=== PATIENT | female | born 1995 | race African-American/Black ===

== ENCOUNTER 2018-02-20 19:33 | Emergency (ER) | payer MEDICAID ==
[~2018-02-20] VITALS: Ht 180.3 cm; Wt 120.0 kg
[~2018-02-20 19:33] MED LIST: CALC1TAB17 PO; FERR-71 PO; PREN-127 PO
[2018-02-20 21:23] VITALS: BP 138/85
[2018-02-20 21:43] LABS: CLARITY URINE CLEAR (CLEAR); COLOR URINE YELLOW (YELLOW); KETONES URINE 1+ (NEGATIVE); LEUKOCYTE ESTERASE URINE NEGATIVE (NEGATIVE); NITRITE URINE NEGATIVE (NEGATIVE); OCCULT BLOOD URINE 2+ (NEGATIVE); PH URINE 5.5 (4.5-8.0); PROTEIN URINE NEGATIVE (NEGATIVE); SPECIFIC GRAVITY URINE 1.027 (1.005-1.030)
== END 2018-02-20 23:39 | disposition home or self-care (01) ==
LOC: ER 23:35
DX: H66.93 Otitis media, unspecified, bilateral (principal); J31.0 Chronic rhinitis; F12.10 Cannabis abuse, uncomplicated
CPT/HCPCS: 81003; 81025; 99283